=== PATIENT | female | born 1950 | race Caucasian/White ===

== ENCOUNTER 2024-05-28 00:42 | Emergency (ER) | payer MEDICARE, OTHER, SELFPAY ==
[2024-05-28 00:43] VITALS: BP 122/69; PULSE 85; RESP 18; TEMP 36.6; O2SAT 97; BMI 33.4
--- NOTE | 2024-05-28 01:30 | EKG12_ITS ---
Test Reason : DYSRHYTHMIA Blood Pressure : */* mmHG Vent. Rate : 81 BPM Atrial Rate : 81 BPM P-R Int : 212 ms QRS Dur : 92 ms QT Int : 418 ms P-R-T Axes : 42 9 28 degrees QTcB Int : 485 ms Sinus rhythm with 1st degree A-V block Otherwise normal ECG Confirmed by Roddy De La O ([id number]), supervising editor trailer SUZANNA ADAMS ([id number]) on 05/29/2024 9:19:12 AM Referred By: FARNCE Confirmed By: Roddy De La O
[2024-05-28 01:31] VITALS: PULSE 67; RESP 19; O2SAT 97
[2024-05-28 01:38] LABS: Absolute Lymphocyte Count 1.84 X10^3/uL (0.83-4.51); Absolute Neutrophil Count 2.6 X10^3/uL (2.0-7.7); Basophil# 0.04 X10^3/uL; Basophil% 0.8 % (0-1); Eosinophil# 0.23 X10^3/uL; Eosinophils% 4.4 % (0-5); Hematocrit 30.1 % (37-47); Hemoglobin 8.7 g/dL (12.0-15.0); Lymphocyte # 1.84 X10^3/ul (0.83-4.51); Lymphocyte % 35.3 % (19-41); Mean Corp Hgb Conc 28.9 g/dL (32-36); Mean Corpuscular Hgb 23.1 pg (27.0-32.0); Mean Corpuscular Volume 80.1 fL (81-99); Mean Platelet Vol. 9.6 fl (6.2-12.0); Monocyte# 0.48 X10^3/uL; Monocyte% 9.2 % (0-10); NRBC Flagged by Analyzer 0 % (0-5); Neutrophil % 49.9 % (47-70); Platelet Count 275 K/mm3 (150-450); RBC Distribution Width CV 18.7 % (11.6-14.6); Red Blood Count 3.76 M/mm3 (4.2-5.4); White Blood Count 5.2 K/mm3 (4.4-11.0)
--- NOTE | 2024-05-28 01:38 | RAD_ITS ---
INDICATION: Palpitations EXAMINATION/TECHNIQUE: X-RAY - XR Chest 2 Views COMPARISON: No relevant prior comparison study available FINDINGS: LINES/DEVICES: None. LUNGS: No consolidation. No pneumothorax. MEDIASTINUM: The aorta is tortuous and atherosclerotic. CARDIAC SILHOUETTE: Not enlarged. BONES AND SOFT TISSUES: No acute abnormalities. RAD/Chest PA and Lateral IMPRESSION: No evidence of active intrathoracic disease. Electronically Signed: Kelsey Fajardo MD at 2:36 EST ,
[2024-05-28 01:45] VITALS: PULSE 73; RESP 15; O2SAT 97
[2024-05-28 01:57] LABS: Anion Gap 7 (5-15); BUN 35 mg/dL (7-18); BUN/Creat Ratio 23.8 RATIO (10-20); Calcium,Total 8.3 mg/dL (8.5-10.1); Chloride 111 mmol/L (98-107); Creatinine, Serum 1.47 mg/dL (0.55-1.02); Estimated Creatinine Clearance 29.92 ml/min; Glucose 267 mg/dL (74-106); Magnesium 2.6 mg/dL (1.6-2.6); Potassium 3.9 mmol/L (3.5-5.1); Sodium Level 139 mmol/L (136-145)
[2024-05-28 01:58] LABS: Troponin-I HS 5 pg/mL (3.0-54.0)
[2024-05-28 02:00] LABS: EST Glomerular Filtration Rate 37 mL/min (>60); Est Glom Filt Rate - Afr Amer 45 mL/min (>60)
--- NOTE | 2024-05-28 02:29 | EDS_ITS ---
HPI History of Present Illness Chief Complaint: Palpitations Informant: patient and family Narrative Narrative: Patient is a 73-year-old female with past medical history of hypertension diabetes and coronary artery disease with remote stent placement. She states she lives in [place] but grew up in this area and recently drove up to hang out with her family. She states she was spending time with her sister today and had a normal day and then they were resting in bed getting ready to sleep. She states that she was not yet asleep when she felt her heart began to race and skipped beats. She states she does not have a history of cardiac dysrhythmia. She states that she felt chest discomfort with this but denied nausea vomiting diaphoresis or shortness of breath. She states that the last time she had these symptoms/sensations that she needed a stent. Therefore she is concerned about potential cardiac event and comes to the hospital for evaluation. Of note the patient states that her symptoms have spontaneously resolved prior to arrival [facility] Medical History (Updated 05/28/24 @ 05:[address] Piter Mcqueen, DO) Hypertension Diabetes Home Medications ?Medication ?Instructions ?Recorded ?Last Taken ?Type Propranolol HCl 160 mg PO DAILY 12/10/13 12/10/13 History levothyroxine 125 mcg tablet 125 mcg PO DAILY 12/10/13 12/10/13 History lisinopril 10 mg tablet 10 mg PO DAILY 12/10/13 12/10/13 History sitagliptin phosphate 50 1 tab PO BIDCM 12/10/13 12/10/13 History mg-metformin 1,000 mg tablet (Johnumenimesh) Allergy/AdvReac Type Severity Reaction Status Date / Time codeine Allergy Itching Verified 12/10/13 16:56 Surgical History (Updated 05/28/24 @ 00:50 by Marisa Dillon) H/O gastric bypass H/O hernia repair H/O foot surgery Stented coronary artery Social History Smoking Status: Former smoker ROS ROS ED Constitutional Constitutional ED: Denies chills or fever(s) Eyes Eyes: Denies blurry vision or change in vision ENT ENT ED: Denies sore throat Cardiovascular Cardiovascular: Reports chest pain, palpitations and racing heartbeat Respiratory/Chest Respiratory/Chest: Denies cough or dyspnea Gastrointestinal Gastrointestinal: Denies abdominal pain, diarrhea, nausea or vomiting Genitourinary Genitourinary ED: Denies dysuria Musculoskeletal Musculoskeletal: Denies back pain or myalgias Integumentary Denies rash Neurologic Neurologic: Denies headache(s) Hematologic/Lymphatic Hematologic/Lymphatic: Denies easy bleeding or easy bruising EXAM Physical Exam Const Vital Signs: 05/28/24 00:43 05/28/24 00:51 05/28/24 01:31 EST Temperature 97.9 F Temperature Source Oral Pulse Rate 85 67 Respiratory Rate 18 19 H Respiratory Effort Normal Non-Labored Blood Pressure 122/69 H Blood Pressure Mean 86 Pulse Ox 97 97 Oxygen Delivery Method Room Air 05/28/24 01:45 EST 05/28/24 02:34 Temperature 98 F Temperature Source Pulse Rate 73 73 Respiratory Rate 15 16 Respiratory Effort Blood Pressure 109/67 Blood Pressure Mean 81 Pulse Ox 97 96 Oxygen Delivery Method Positive well nourished and well developed General Appearance ED: well developed; Negative for pallor HEENT HEENT Narrative: Normocephalic atraumatic Eyes PERRL and EOMs intact bilaterally General Eye ED: Negative for scleral icterus Neck supple Neck Narrative: No nuchal rigidity or meningeal signs Chest Wall palpation of chest normal Chest Narrative: No bony deformity or crepitance noted No reproducible pain with palpation Resp normal respiratory effort and clear to auscultation bilaterally Cardio regular rate and regular rhythm Rate: other Other Details: Heart is regular rate and rhythm Radial and carotid pulses are equal and symmetric GI normal to inspection, nondistended, normoactive bowel sounds, non-tender, non- distended and no masses Auscultation: normoactive bowel sounds Palpation: soft Extremity normal to inspection Extremity Narrative: No asymmetric edema no pitting edema negative Homans' sign bilaterally Neuro oriented x3, CN's II-XII intact bilaterally and no sensory deficits noted Sensorium / Orientation: alert Motor Exam: strength 5/5 throughout Psych mental status grossly normal Skin no rashes or lesions noted General Skin Exam: Negative for jaundice or pallor MDM MDM MDM Narrative Medical decision making narrative: Patient arrived to the ER with stable vitals and reported spontaneous resolution of her palpitations and mild chest discomfort. With concern this could be acute coronary syndrome versus cardiac dysrhythmia versus electrolyte abnormality versus potential lung pathology such as pneumonia or pneumothorax I did elect to perform basic laboratory studies with EKG and chest x-ray. 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 Her initial troponin was normal at 5 and we discussed a delta troponin per protocol the patient has been pain-free since before arrival to the ER and therefore she does not want to have further testing performed. She did have anemia on laboratory findings with a hemoglobin of 8.7 but this is above a transfusion value and patient states this is chronic in nature. Otherwise there is no clinically significant electrolyte abnormality or signs of acute kidney injury. Her glucose is slightly elevated at 267 but she has a known history of diabetes and there is no findings for DKA or HHS. Therefore at this time with patient having spontaneous resolution of her palpitations and discomfort prior to arrival EKG showing normal sinus rhythm without ischemic findings anvil seating press operator revealing no cardiac dysrhythmia and patient's initial troponin normal I do not feel there is need for further evaluation in the ER and she is otherwise safe for discharge History & Record Review Discussion w/independent historian: Patient and Family Lab Data Attestation: I reviewed the patient's lab results. Labs: Laboratory Results - last 24 hr 05/28/24 00:50 WBC 5.2 RBC 3.76 L Hgb 8.7 L Hct 30.1 L MCV 80.1 L MCH 23.1 L MCHC 28.9 L RDW Std Deviation 54.0 H RDW Coeff of [place] 18.7 H Plt Count 275 MPV 9.6 Immature Gran % (Auto) 0.400 Neut % (Auto) 49.9 Lymph % (Auto) 35.3 [place] % (Auto) 9.2 Eos % (Auto) 4.4 Baso % (Auto) 0.8 Absolute Neuts (auto) 2.6 Absolute Lymphs (auto) 1.84 Nucleated RBC % 0 Sodium 139 Potassium 3.9 Chloride 111 H Carbon Dioxide 21.0 Anion Gap 7 BUN 35 H Creatinine 1.47 H Estim Creat Clear Calc 29.92 Est GFR (MDRD) Af Amer 45 L Est GFR (MDRD) Non-Af 37 L BUN/Creatinine Ratio 23.8 H Glucose 267 H Calcium 8.3 L Magnesium 2.6 Troponin I High Sens 5 TSH 3.230 Radiography Diagnostic Testing: Clinical Impression(s) from Imaging Studies Chest X-Ray 05/28/24 01:38 EST IMPRESSION: No evidence of active intrathoracic disease. Electronically Signed: Kelsey Fajardo MD at 2:36 EST , Chest x-ray as interpreted by the emergency medicine physician reveals no acute infiltrate pneumothorax or pleural effusion Discharge Plan Triage Chief Complaint: Palpitations ED Provider: Piter Mcqueen Dx/Rx/DC Orders Clinical Impression: Palpitations, Type 2 diabetes mellitus, Hypertension Instructions: ED Palpitations Prescriptions: No Action levothyroxine 125 MCG tablet 125 mcg PO DAILY lisinopril 10 MG tablet 10 mg PO DAILY sitagliptin phos-metformin [Janumet] 1 TABLET tablet 1 tab PO BIDCM Propranolol HCl 160 MG 160 mg PO DAILY Primary Care Provider: MAHESH CIFUENTES, YENNIFER ROCA Referrals: MAHESH CIFUENTES, YENNIFER ROCA [Other] Activity Restrictions/Additional Instructions: Please follow-up with your family doctor and/or trim crew supervisor for further evaluation and discuss potential Holter monitor to assess for an abnormal cardiac rhythm if symptoms persist. Return to the ER should you have any worsening of symptoms or further concerns Print Language: Moroccan Disposition Disposition: Home, Self Care Discharge Date/Time: 05/28/24 02:38
[2024-05-28 02:34] VITALS: BP 109/67; PULSE 73; RESP 16; TEMP 36.6; O2SAT 96
== END 2024-05-28 02:38 | disposition home or self-care (01) ==
PROVIDERS: Emergency Provider Emergency Medicine; Visit Provider Emergency Medicine
DX: R00.2 Palpitations (principal); E11.9 Type 2 diabetes mellitus without complications; I25.10 Atherosclerotic heart disease of native coronary artery without angina pectoris; Z87.891 Personal history of nicotine dependence; I10 Essential (primary) hypertension; Z95.5 Presence of coronary angioplasty implant and graft; Z79.84 Long term (current) use of oral hypoglycemic drugs; Z79.899 Other long term (current) drug therapy
CPT/HCPCS: 71046; 80048; 83735; 84443; 84484; 85025; 93005; 99285; J7030; A4216